=== PATIENT | male | born 1970 | race Caucasian/White ===

== ENCOUNTER 2020-08-09 05:31 | Emergency (ER) | payer OTHER, SELFPAY ==
[2020-08-09 05:57] VITALS: BP 123/79; PULSE 102; RESP 20; TEMP 36.4; O2SAT 97; BMI 25.8
--- NOTE | 2020-08-09 06:29 | ED.OVERDOSE ---
HPI - Overdose General Chief Complaint: Overdose Stated Complaint: HEROIN OD Time Seen by Provider: 08/09/20 06:07 Source: patient Mode of arrival: EMS History of Present Illness HPI Narrative: This is a 49-year-old male who is brought in by EMS after being found behind a dumpster and unresponsive. 6 mg of Narcan was administered with good results. Patient states that he just got [place] train [place] and that he had been drinking with his niece, but otherwise is having difficulty remembering all the details. 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 Currently he feels much better and is requesting something to drink. Patient denies any suicidal ideation. Related Data Allergies Allergy/AdvReac Type Severity Reaction Status Date / Time No Known Allergies Allergy Unverified 01/18/20 19:06 [No Known Allergies*] Review of Systems Review of Systems: Pertinent positives and negatives As stated in HPI 10 point review of systems is otherwise negative. PMFSH Past Medical History Source: nursing notes reviewed Social History Social History Advance Directives: No Advance Directives Information Provided: No Physical Exam Vital Signs: Vital Signs: Last Vital Signs Temp 97.6 F 08/09/20 05:57 Pulse 102 H 08/09/20 05:57 Resp 20 08/09/20 05:57 BP 123/79 08/09/20 05:57 Pulse Ox 97 08/09/20 05:57 Body Mass Index 25.8 VITAL SIGNS: Reviewed. GENERAL: Well developed, well nourished, in no acute distress. HEAD: Normocephalic/atraumatic EYES: PERRLA, EOMI NOSE: Nares patent bilateral OROPHARYNX: no oral lesions noted, posterior pharynx clear, dry mucosa NECK: Supple, no adenopathy LUNGS: Normal breath sounds. SpO2<97> CARDIOVASCULAR: Regular rate and rhythm without noted murmurs ABDOMEN: Soft, non-tender, non-distended with bowel sounds. NEUROLOGIC: Alert and oriented x 4. Course Course Course Narrative: This is a 49-year-old male with history and clinical presentation consistent with accidental overdose. Patient will be discharged in stable condition after tolerating oral intake with home Narcan. Discharge Plan Discharge Clinical Impression: Drug overdose Patient Disposition: Home, Self-Care Additional Instructions: Do not hesitate to return to the emergency department. Referrals: Physician,Unknown [Primary Care Provider] - 2 days
[2020-08-09 06:38] VITALS: BP 117/76; PULSE 120; O2SAT 97
[2020-08-09] MEDS: 0.9 % Sodium Chloride 1,000 ML 999 ML IV (06:46)
[2020-08-09] MEDS: ondansetron HCL 4 MG/2 ML VIAL IVPUSH (06:47)
--- NOTE | 2020-08-09 07:31 | PC.NURSE ---
this rn received report from mer neal (rn) stating that [facility] needs to be called and ask for officer harsha prior to d/c this pt. this rn called [facility] at [phone] and spoke with dispatch/officer (#[phone]). dispatch/officer (#[phone]) states that officer harsha has left for the day and no knows why request was made for call to be placed prior to pt being discharged home. dr. mayer aware. pt to be d/c home. pt amb (I) gait steady to bathroom and btb.
[2020-08-09 07:52] VITALS: BP 145/88; PULSE 108; RESP 20; TEMP 36.3; O2SAT 96
[2020-08-09] MEDS: Naloxone HCl Nasal TAKE HOME 4 MG SPRAY NOSTRILALT (08:06)
[2020-08-09 08:26] LABS: Amphetamine Screen Urine Not Detected (Not Detect); Barbiturates, Urine Not Detected (Not Detect); Benzodiazepines Screen Urine Not Detected (Not Detect); Cannabinoid Screen Urine POSITIVE (Not Detect); Cocaine Screen Urine POSITIVE (Not Detect); Opiate Screen Urine POSITIVE (Not Detect); Phencyclidine Screen Urine Not Detected (Not Detect)
== END 2020-08-09 08:15 | disposition home or self-care (01) ==
PROVIDERS: Emergency Provider Student in an Organized Health Care Education/Training Program
DX: T40.1X1A Poisoning by heroin, accidental (unintentional), initial encounter (principal); Y92.9 Unspecified place or not applicable; Z71.51 Drug abuse counseling and surveillance of drug abuser
CPT/HCPCS: 80307; 96365; 96375; 99284; J2405